=== PATIENT | male | born 1950 | race Caucasian/White ===

== ENCOUNTER 2017-10-01 12:51 | Emergency (ER) | payer OTHER ==
[2017-10-01 13:29] LABS: BASOPHILS 0.3 % (0-2); EOSINOPHILS 2.2 % (0-7); HEMATOCRIT 44.5 % (42.0-54.0); HEMOGLOBIN 14.7 g/dL (13.5-17.5); IMMATURE GRANULOCYTES 0.1 % (0-5); LYMPHOCYTES 42.8 % (15-50); MCH 30.6 pg (26.0-34.0); MCV 92.7 fL (80.0-100.0); MEAN PLATELET VOLUME 9.6 fL (7.4-10.4); MONOCYTES 10.3 % (2-11); NEUTROPHILS 44.3 % (40-80); PLATELET COUNT 175 10x3/uL (130-400); RDW 13.4 % (11.5-14.5); WBC 6.8 10x3/uL (4.8-10.8)
[2017-10-01 13:48] LABS: ALBUMIN 3.8 g/dL (3.4-5.0); ALKALINE PHOSPHATASE 89 U/L (46-116); ALT (SGPT) 33 U/L (10-68); CALC OSMOLALITY 278 mosm/kg (275-300); CALCIUM 9.4 mg/dL (8.5-10.1); CARBON DIOXIDE 29.9 mmol/L (21.0-32.0); CHLORIDE - SERUM 103 mmol/L (98-107); CREATININE - SERUM 1.1 mg/dL (0.6-1.3); GLUCOSE 87 mg/dL (74-106); PROTEIN - SERUM 7.4 g/dL (6.4-8.2); SODIUM 139 mmol/L (136-145); UREA NITROGEN 19 mg/dL (7-18); eGFR NON AFRICAN AMERICAN 71 mL/min (90-120)
[2017-10-01 14:03] LABS: CHOL - HDL RATIO 8.4 ratio (2.3-4.9); CHOLESTEROL, TOTAL 312 mg/dL (0-200); CREATINE KINASE 69 UL (21-232); HDL CHOLESTEROL 37 mg/dL (32-96); TRIGLYCERIDE 426 mg/dL (30-200)
[2017-10-01 14:05] LABS: TROPONIN-I < 0.017 ng/mL (0.000-0.060)
== END 2017-10-01 18:58 | disposition short-term general hospital (02) ==
LOC: D.ER 12:51
PROVIDERS: Emergency Medicine
DX: I20.0 Unstable angina (principal); R07.9 Chest pain, unspecified; I10 Essential (primary) hypertension